=== PATIENT | female | born 1945 | race Caucasian/White ===

== ENCOUNTER 2025-01-26 11:31 | Outpatient (AMB) | payer MEDICARE, OTHER, SELFPAY ==
--- NOTE | 2025-01-26 11:37 | A.OFFVIS_ITS ---
Intake Visit Reasons: 6m sz Medication List - Last Reconciled 01/26/25 by Mercy Gallagher MD amitriptyline-chlordiazepoxide 12.5-5 mg 2 tabs PO BEDTIME PRN amlodipine 2.5 mg PO DAILY calcium carbonate (Calcium 600) 600 mg PO BID carbamazepine (Epitol) 200 mg PO TID cholecalciferol (vitamin D3) 50 mcg PO DAILY cholestyramine 4 grams PO BID cyclosporine 0.05% (Restasis) 1 drp ophthalmic (eye) Q12H phenobarbital 97.2 mg PO BEDTIME propranolol 80 mg PO BID sumatriptan succinate (Imitrex STATdose Refill) subcut valsartan 320 mg PO DAILY HPI Comments Details: 80 yr old woman with migraines and seizures. Doing well . [place] [employer] and was momentarily confused for 10 secs. The week before she had some dizziness for 10 minutes with vertigo. No nausea with out . Happened while sitting in her chair. Stressed as her son in [place] being seen at [facility]. No major migraines. Has a daily headache. Reduced Chlordiazepoxide -Amitrip to 1 hs on 05/29/23 to June 17 and went back to 2 as she was not feeling well. May have had a partial Sz on 05/21/24 as she was sick. No other definite partial Sz . Worries about everything and gets a lot of stress headache and neck tension almost daily. No migraines for a long while. Constantly worried. Some dizziness. Forgets things but functions well. Occasionally gets 5-10 secs of vertigo on lying down at night. 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 ?Hearing test shows bilateral high frequency hearing loss of 60db. [facility] Medical History (Updated 01/26/25 @ 11:44 by Mercy Gallagher MD) Gall stone Migraine Seizure HTN (hypertension) Review of Systems Const Details: General/Constitutional:? Change in appetitedenies.? Fatiguedenies.? Feverdenies.? Weight gaindenies.? Weight lossdenies. ???Sleep:? Difficulty getting to sleepdenies.? Difficulty maintaining sleepdenies?.? Daytime sleepinessdenies. ???Respiratory:? Shortness of breathdenies.? Chest paindenies. ???Cardiovascular:? Chest pain at restdenies.? Chest pain with exertiondenies.? Dizzinessdenies.? Fluid accumulation in the legsdenies.? Irregular heartbeatdenies.? Palpitations denies. ???Gastrointestinal:? Constipationdenies.? Diarrheadenies.? Difficulty swallowingdenies.? Heartburn denies.? Nauseadenies. ???Genitourinary:? Frequent urinationdenies.? Urgencydenies.? Incontinencedenies. ???Musculoskeletal:? Neck painadmits.? Back paindenies.? Joint stiffnessadmits.? Sciaticadenies. ???Neurologic:? Difficulty swallowingdenies.? Balance difficultydenies.? Coordinationnormal.? Difficulty speakingdenies.? Dizzinessdenies.? Faintingdenies.? Gait abnormality denies.? Headachethat is chronic.? Loss of strengthdenies.? Loss of use of extremitydenies.? Low back paindenies.? Memory lossdenies.? Seizuresadmits.? Ticsdenies.? Tingling/Numbnessdenies.? Transient loss of visiondenies.? Tremor denies. ???Psychiatric:? Anxietydenies.? Auditory/visual hallucinationsdenies.? Delusionsdenies.? Depressed mooddenies.? Stressorsdenies.? Suicidal thoughtsdenies. Physical Exam Neuro Other: Neurological: Abnormal neurological findings:??None.?Mental Status:??alert and oriented X 3,?Normal attention, orientation, memory and affect.?Cranial Nerves:??Pupils are equal, round and reactive to light. Fundoscopy shows normal disc bilaterally. External occular muscles are intact. Visual oropeza are full, no ptosis. Face is symmetrical, no facial weakness or droop. Facial sensations are normal. Tongue protrudes in midline. Palate elevates symmetrically. Shoulder shrugging is normal..?Motor Examination:??Normal muscle tone, bulk and strength,?No atrophy or fasciculations,?No drift of the extended upper extremities,?Deep tendon reflexes are 2+?,?Plantars are flexor?.?Straight Leg Raising:??90 degrees.?Sensory Exam:??Normal light touch, temperature, pinprick, vibration and joint-position sensations?,?Rhomberg sign is absent.?Coordination:??no ataxia,?no titubation,?ndtqlz-ch-ywxl, asof-lcbk-phbu test and rapid alternating movements were normal.?Gait Exam:??Within normal limits.?Cerebellar Signs:??Xkgxlc-jd-cyuo and dikd-gf-jivm is normal,?no dysdiadochokinesia?.?Extrapyramidal System:??No tremor, rigidity with normal facial expressions,?No bradykinesia, no bradyphrenia. Normal arm swing and posture. No propulsion or retropulsion.?Speech:??Normal,?no dysphasia or dysarthria..? General Examination: GENERAL APPEARANCE:??normal,?in no acute distress.?HEART:??S1, S2 normal,?no murmurs.?LUNGS:??clear anteriorly and posteriorly.?MUSCULOSKELETAL:??normal.?EXTREMITIES:??no edema.?PSYCH:??alert, oriented,?cognitive function intact,?cooperative with exam.? Mini Mental Status Exam: Level of Consciousness:??Alert.?Orientation:??Knows correct year, month, date, day and season,?Knows correct city, county and state. Knows correct location and floor.?Registration:??Able to register 3 objects.?Attention:??Serial 7's performed accurately.?Recall:??Able to recall 3 out of 3 objects.?Language:??Normal spontaneous speech, fluency, repetition,naming, comprehension, reading and writing.?Total Score:??30/30.? Assessment & Plan Assessment & Plan (1) Seizure: Code(s): R56.9 - Unspecified convulsions Category: Medical (2) Migraine: Code(s): G43.909 - Migraine, unspecified, not intractable, without status migrainosus Category: Medical Plan Check AED levels. F/u EEG . Will decide about driving after that Orders: Orders EEG Routine Today R56.9 - Unspecified convulsions Carbamazepine Tegretol Today R56.9 - Unspecified convulsions Phenobarbital Today R56.9 - Unspecified convulsions Medications: New amitriptyline-chlordiazepoxide 12.5-5 mg 2 tabs PO BEDTIME phenobarbital 97.2 mg PO BEDTIME 90 tabs 3RF 90 days carbamazepine (Epitol) 200 mg PO TID 270 tabs 3RF 90 days Coding Level of Care Code Est Pt Level 4 (58978) Diagnoses Seizure R56.9 Migraine G43.909
== END 2025-01-26 12:00 | disposition home or self-care (01) ==
LOC: HO.HSM 11:32
PROVIDERS: PCP Internal Medicine; Visit Provider Psychiatry & Neurology Neurology
DX: R56.9 Unspecified convulsions (principal); G43.909 Migraine, unspecified, not intractable, without status migrainosus
CPT/HCPCS: 99214

== ENCOUNTER 2025-01-26 11:31 | Outpatient (REF) | payer MEDICARE, OTHER, SELFPAY ==
[2025-01-26 14:38] LABS: Carbamazepine Tegretol 10.0 mcg/mL (5.0-12.0)
--- OUTSIDE RECORDS SUMMARY | 2025-01-26 17:06 | XMS_ITS | Data Portability ---
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 [email or web address] Not available 08/27/2024 15:03:01 Plan of Treatment Reminders Order Date Submit Date Provider Last Modified By Organization Details Last Modified Time Details Appointments Hearing Test 2025 10:00A M Hearing Test Not available Not available Not available Establish ed 15 2025 10:30A M GRACE TAYLOR MD Not available Not available Not available Lab None recorded. Referral None recorded. Procedures None recorded. Surgeries None recorded. Imaging None recorded. Medication Orders None recorded. Patient TargetsNo targets recorded. Patient InstructionsNo instructions recorded. Reason for Referral None Reported. Results Created Date Observation Date Name Description Value Unit Range Abnormal Flag Note LastModifiedBy Organization Detail LastModifiedTime 06/22/19 25 audio gram No observ ation record ed. BARCODE Not Available 2024 08:26:46 09/01/19 25 audio gram No observ ation record ed. BARCODE Not Available 2024 10:32:24 01/04/20 25 audio gram No observ ation record ed. BARCODE Not Available 2024 11:17:50 Result Notes None recorded. Problems Name Problem SNOMED Code Status Onset Date Resolution Date Notes Provider Name and Address Organization Details Recorded Time Sensorineural hearing loss of bilateral ears 420499291 Active 2024 GRACE TAYLOR MD 100 [facility],[address], [address] [place] [address] - [facility] [place] 11:27:19 Mixed conductive and sensorineural hearing loss, bilateral 371842691 Active 2024 GANESH GODWIN, AuD 100 [facility],[place] [address], [place], [address], [facility] - [facility] [place] 11:47:47 Dizziness and giddiness 588521348 Active 2024 GANESH GODWIN, AuD 100 [facility],[place] [address], [place], [address], [facility] [place] 11:47:51 Problem Notes None recorded. Procedures Surgical History Date Name Laterality Status Provider Name and Address Organization Details Recorded Time 01/04/20 25 Air & Speech Audio with Tymps - 00075, 05120 & 16646 completed TIKI VERA, [address], [address], [facility] 01/03/2025 09:37:05 08/28/19 25 Tympanometry - 93470 completed KOBI DUONG, [address], [address], [facility] 08/27/2024 15:03:24 06/19/19 25 Comp Audio with Tymps - 98751 & 57705 completed GANESH GODWIN, [facility] 100 [facility],[address], [address], [facility] 06/18/2024 11:47:24 Imaging Results None recorded. Procedure Notes None recorded. Medical Equipment None Reported. Allergies Allergen ID Allergen Name Allergen Category Reaction Reaction Severity Criticality Documentation Date Start Date Code Code System Note Provider Name and Address Organization Details Recorded Time 333662 Augmentin medicatio n Not available Not available Not available 06/18/2024 98617 2 RxNorm Norma amaya [facility] 11:07:29 Medications Name Sig Start Date Stop Date Status Note LastModified by Organization Details LastModified Time phenobarbit al 97.2 mg tablet TAKE 1 TABLET BY MOUTH EVERYDAY AT BEDTIME active Not Available Not Available No t Available amitriptyli ne-chlordia zepoxide 12.5 mg-5 mg tablet TAKE 2 TABLETS BY MOUTH EVERY NIGHT AT BEDTIME active Not Available Not Available No t Available propranolol ER 60 mg capsule,24 hr,extended release TAKE 1 CAPSULE BY MOUTH TWICE A DAY 01/03 completed Not Available Not Available Not Available amlodipine 2.5 mg tablet TAKE 1 TABLET BY MOUTH EVERY DAY active Not Available Not Available No t Available butalbital- acetaminoph en-caffeine 50 mg-325 mg-40 mg tablet PLEASE SEE ATTACHED FOR DETAILED DIRECTION S 01/03 completed Not Available Not Available Not Available ketorolac 0.5 % eye drops INSTILL 1 DROP INTO OPERATIVE EYE TWICE DAILY, START 2 DAYS BEFORE SURGERY 06/18 completed Not Available Not Available Not Available carbamazepi ne 200 mg tablet TAKE 1 TABLET BY MOUTH THREE TIMES A DAY ORALLY THREE TIMES A DAY 90 DAYS active Not Available Not Available No t Available amoxicillin 875 mg tablet TAKE 1 TABLET BY MOUTH TWICE A DAY FOR 7 DAYS 06/18 completed Not Available Not Available Not Available benzonatate 100 mg capsule TAKE 1 CAPSULE BY MOUTH 3 TIMES A DAY IF NEEDED FOR COUGH FOR UP TO 7 DAYS. DO NOT CRUSH OR CHEW. 06/18 completed Not Available Not Available Not Available cephalexin 500 mg capsule TAKE 1 CAPSULE BY MOUTH 2 TIMES A DAY FOR 5 DAYS. 12/31 completed Not Available Not Available Not Available propranolol ER 80 mg capsule,24 hr,extended release TAKE 1 CAPSULE BY MOUTH TWICE A DAY active Not Available Not Available No t Available valsartan 320 mg tablet TAKE 1 TABLET BY MOUTH EVERY DAY active Not Available Not Available No t Available fluticasone propionate 50 mcg/actuati on nasal spray,suspe nsion USE 2 SPRAYS IN EACH NOSTRIL DAILY active Not Available Not Available No t Available amoxicillin 875 mg-potassiu m clavulanate 125 mg tablet TAKE 1 TABLET BY MOUTH TWICE A DAY FOR 10 DAYS 06/18 completed Not Available Not Available Not Available Laxative (bisacodyl) 5 mg tablet,liza yed release TAKE 2 TABLETS BY MOUTH RIGHT BEFORE BEGINNING BOWEL PREP. SEE INSTRUCTI ONS PROVIDED BY THE OFFICE 01/03 completed Not Available Not Available Not Available Restasis 0.05 % eye drops in a dropperette INSTILL 1 DROP INTO BOTH EYES TWICE A DAY active Not Available Not Available No t Available cholestyram ine (with sugar) 4 gram powder for susp in a packet DRINK 1 PACKET BY MOUTH ONCE A DAY DISSOLVE 1 PACKET IN WATER AND DRINK BY MOUTH ONCE A DAY active Not Available Not Available No t Available nitrofurant oin monohydrate /macrocryst als 100 mg capsule TAKE 1 CAPSULE BY MOUTH TWICE A DAY FOR 5 DAYS 12/31 completed Not Available Not Available Not Available oseltamivir 30 mg capsule TAKE 1 CAPSULE BY MOUTH 2 TIMES A DAY FOR 8 DOSES. 06/18 completed Not Available Not Available Not Available GaviLyte-G 236 gram-22.74 gram-6.74 gram-5.86 gram oral solution PLEASE SEE ATTACHED FOR DETAILED DIRECTION S 01/03 completed Not Available Not Available Not Available Vitals Date Recorded Body height Body mass index (BMI) Body weight Provider Name and Address Organization Details Last Updated DateTime 06/18/2024 154.94 cm 27.6 kg/m2 11137.49 g Norma Du [facility] 06/18/2024 11:07:15 Date Recorded Body height Body mass index (BMI) Body weight Provider Name and Address Organization Details Last Updated DateTime 08/27/2024 154.94 cm 27.4 kg/m2 85132.89 g Norma Du [facility] 08/27/2024 16:07:10 Date Recorded Body height Body mass index (BMI) Body weight Provider Name and Address Organization Details Last Updated DateTime 01/03/2025 154.94 cm 26.5 kg/m2 59774.93 g Norma Du [facility] 01/03/2025 09:53:28 Social History None recorded. Functional Status None recorded. Mental Status None recorded. Family History Nothing Reported. Medical History Condition Response Migraines Y Arthritis Y Anxiety Y Hypertension Y Depression Y Gynecological HistoryNo gynecological history recorded. Obstetrics History GPAL:G 0 P 0 0 0 0 Past Encounters Encounter ID Performer Location Encounter Start Date Encounter Closed Date Diagnosis/Indication Diagnosis SNOMED-CT Code Diagnosis ICD10 Code Diagnosis IMO Codes Diagnosis Note [id number] GRACE TAYLOR MD [facility] [address] [address] 06/18/2024 10:25:05 06/18/2024 12:45:17 Mixed conductive and sensorineural hearing loss, bilateral 408385069 H90.6 78 yo F with persistent effusion following ear and sinus infection beginning 1 month ago, with small AB gap. I reassured her there was no evidence of coalescent mastoiditi s on previous imaging, and exam today does not show any purulence. I counseled her that most effusions will resolve with time, generally within 3 months. I reassured her there was no coalescent mastoiditi s on imaging, and no evidence of purulence on exam today. She can use nasal steroids. We will plan on reassessme nt in 2 months to ensure resolution , sooner with worsening symptoms. Audiologic al evaluation results:Ri ght ear:Mild sloping to moderately severe mixed hearing loss with excellent word recognitio n.Left ear:Mild sloping to moderately severe mixed hearing loss with excellent word recognitio n. Tympanomet ry:Right Ear:Type BLeft Ear:Type B Dizziness and giddiness 575259289 R42 [id number] Elvin NICOLE [facility] [place] [address] [place] [address] 06/18/2024 11:47:15 06/18/2024 12:45:26 Mixed conductive and sensorineural hearing loss, bilateral 571428793 H90.6 Audiologic al evaluation results: Right ear: Mild sloping to moderately severe mixed hearing loss with excellent word recognitio n. Left ear: Mild sloping to moderately severe mixed hearing loss with excellent word recognitio n. Tympanomet ry: Right Ear:Type B Left Ear:Type B Dizziness and giddiness 138773354 R42 [id number] GRACE TAYLOR MD [facility] [address] [place] [address] 08/27/2024 14:45:03 08/27/2024 15:58:31 Mixed conductive and sensorineural hearing loss, bilateral 260773914 H90.6 79-year-ol d female presents today for follow-up. Some of the sound distortion symptoms she has been having are improved. Though she had abnormal tympanomet ry today, I do not see any effusion, and I do see TM mobility on the left with pneumatic otoscopy. Her exam is improved compared to her last visit, so I have recommende d continued observatio n and lieu of tube placement especially given that air-bone gap at her last visit was relatively small. [id number] ELVIN ROSADO [facility] [address] [place] [address] 08/27/2024 15:02:53 09/02/2024 08:23:34 Mixed conductive and sensorineural hearing loss, bilateral 126900805 H90.6 Tympanomet ry: Right: Type B Left: B [id number] GRACE TAYLOR MD [facility] [address] [place] [address] 01/03/2025 09:03:16 01/03/2025 11:30:05 Sensorineural hearing loss of bilateral ears 121207526 H90.3 Middle ears are well aerated. Previously noted conductive component has resolved. There is still a hearing loss involving the speech frequencie s. I did discuss that hearing aids can help with the tinnitus. She does feel that the tinnitus is a little bit better. She is not interested in any amplificat ion at this time. I recommend repeat audio in about a year. Audiologic al evaluation results: Right ear:Border line normal sloping to moderately severe sensorineu ral hearing loss with excellent word recognitio n.Left ear:Normal sloping to a moderate sensorineu ral hearing loss with excellent word recognitio n. Tympanomet ry:Right Ear:[place] [id number] ELVIN ROMERO [facility] [address] [place] [address] 01/03/2025 09:02:56 01/03/2025 10:10:32 Sensorineural hearing loss of bilateral ears 409522350 H90.3 Audiologic al evaluation results: Right ear: Borderline normal sloping to moderately severe sensorineu ral hearing loss with excellent word recognitio n. Left ear: Normal sloping to a moderate sensorineu ral hearing loss with excellent word recognitio n. Tympanomet ry: Right Ear:Type As Left Ear:Type As Health Concerns Section Related Observation LastModified by Organization Detai ls LastModified Time None Recorded Concern Status LastModified by Organization Details LastModified Time None Recorded Advance Directives Directive None Recorded Payers Insurance Date Sequence Insurance Name Policy Number Policy Martin Covered Member ID Martin Member ID Guarantor Name 01/03/2025 1 MEDICARE [place]: [facility] [employer] Mirtha Mtz Dexheimer [id number] Mirtha Dexheimer 01/03/2025 2 [facility] INDEMNITY PLAN (INDEMNITY) [id number] Vivek Martin Dexheimer [id number] Mirtha Gina Notes Date Note Type Note Provider Name and Address Organization Details Recorded Time 06/18/2024 text/html ROS as noted in the HPI 78 yo F with hearing lossfeels like talking through tube for a monthhearing now better but tinnitus (tambourine and drumming) now left only previously both, have not heard the tambourinesdiagnosed with inner ear and sinus infection and had the flu, Februarygiven script for fioricet, tamiflu, augmentin (gave diarrhea) - stopped early but took at least [address] reviewed showing:Bilateral mastoid and middle ear effusions. Recommend otoscopic exam.Extensive opacification in the paranasal sinuses with air-fluid levelspronounced in the maxillary sinuses suggesting acute sinusitis.The orbits are within normal limits.No skull fracture. I reviewed the images no bony destruction. GRACE TAYLOR MD [address], [address], [facility] 06/21/2024 12:49:19 06/18/2024 text/html Audiological Evaluation HPIReported by PatientHearing LossFor hearing loss perceived, patient reportshearing loss in both ears (no differences noted between ears).DizzinessFor balance symptoms reported, patient reportsdizziness. Elvin NICOLE [address] [place] [address],[address], [address], [facility] 06/18/2024 11:48:29 08/27/2024 text/html Audiological Evaluation HPIReported by Patient Provider requested tympanometry today. ELVIN ROSADO 100 [facility], [address], [place] - [facility] 08/27/2024 15:08:58 08/27/2024 text/html ROS as noted in the HPI drums are bettervoice seems far away sometimes, but better today when talking PV: 78 yo F with hearing lossfeels like talking through tube for a monthhearing now better but tinnitus (tambourine and drumming) now left only previously both, have not heard the tambourinesdiagnosed with inner ear and sinus infection and had the flu, ven script for fioricet, tamiflu, augmentin (gave diarrhea) - stopped early but took at least [address] reviewed showing:Bilateral mastoid and middle ear effusions. Recommend otoscopic exam.Extensive opacification in the paranasal sinuses with air-fluid levelspronounced in the maxillary sinuses suggesting acute sinusitis.The orbits are within normal limits.No skull fracture. I reviewed the images no bony destruction. GRACE TAYLOR MD [address] [place] [address],[address], [address], [facility] - [facility] 08/28/2024 08:12:16 01/03/2025 text/html Sounds are still there, quieted down. Not as much hearing sounds from the medley. Also hears sounds like tambourine and sweeping sounds. Has a history of migraines. GRACE TAYLOR MD [address] [place] [address],[address], [address], [place] - [facility] 01/03/2025 11:28:19 OBGyn Episode No OBEpisode recorded.
== END 2025-01-26 11:32 | disposition home or self-care (01) ==
LOC: HO.LAB 11:31
PROVIDERS: PCP Internal Medicine; Visit Provider Psychiatry & Neurology Neurology
DX: G40.209 Localization-related (focal) (partial) symptomatic epilepsy and epileptic syndromes with complex partial seizures, not intractable, without status epilepticus (principal); G43.009 Migraine without aura, not intractable, without status migrainosus
CPT/HCPCS: 36415; 80156; 80184; 99212

== ENCOUNTER 2025-03-07 10:24 | Outpatient (REF) | payer MEDICARE, OTHER, SELFPAY ==
--- NOTE | 2025-03-07 11:52 | EEG_ITS ---
History: Gall stone, Migraine, Seizure, HTN (hypertension) - Patient reports she may have had a partial Sz on 05/21/24 as she was sick. No other definite partial Sz . Worries about everything and gets a lot of stress headache and neck tension almost daily. No migraines for a long while. Constantly worried. Some dizziness. Forgets things but functions well. Occasionally gets 5-10 secs of vertigo on lying down at night. 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 Medication: amitriptyline-chlordiazepoxide, amlodipine, calcium carbonate, carbamazepine (Epitol), cholecalciferol (vitamin D3), cholestyramine, cyclosporine, phenobarbital, propranolol, sumatriptan succinate, valsartan Technical Description Photic Stimulation: completed Hyperventilation: omitted Behavioral State: pleasant State of Consciousness: awake and drowsy Skull Defect: none Sedation: none Handedness: right Duration: 31 min 58 sec Procedures Analyst Comments: patient was very nervous Last Meal: 03/07/25 @ 8 AM Time / date of last symptom: 05/21/24 Description: The waking background activity consists of a moderate to high voltage diffuse poorly organized 7-8 hertz slow alpha intermixed with moderate voltage beta frequencies. Occasional bitemporal theta at 6 hertz with somewhat sharp configuration are seen with a slight left-sided predominance. Photic stimulation is without activation. Hyperventilation was omitted. No sleep stages are identified. Impression: This EEG is considered mildly abnormal due to mild diffuse background slowing and some bitemporal theta slowing with sharp configuration. This correlates with a diffuse cerebral dysfunction with some elements of cerebral irritability in the temporal regions. These findings are not developed well enough to be diagnostic for a seizure disorder. No definite seizure activity is identified. Clinical correlation is suggested MTDD
--- OUTSIDE RECORDS SUMMARY | 2025-03-07 13:06 | XMS_ITS | Clinical Summary ---
Author Organization [facility] [address] [facility] Address [address] [place] [address] Phone Care Team Providers Care Construction Teacher Name Role Phone Tameka Zarate MD Primary Care Provider [phone] Allergies Active Allergy Reactions Criticality Noted Date Comments Amoxicillin-Pot Clavulanate Diarrhea 08/04/19 25 Medications carBAMazepine (TEGretol) 200 mg tablet Take 1 tablet (200 mg total) by mouth. 5 Active PHENobarbitaL 97.2 mg tablet Take 1 tablet (97.2 mg total) by mouth at bedtime. 4 Active amLODIPine (NORVASC) 2.5 mg tablet Take 1 tablet (2.5 mg total) by mouth 1 (one) time each day. Active chlordiazePOXID E-amitriptyline (LIMBITROL) 12.5-5 mg per tablet TAKE 2 TABLETS BY MOUTH DAILY AT BEDTIME ORALLY 90 DAYS 4 Active propranolol LA (INDERAL LA) 60 mg 24 hr capsule Take 1 capsule (60 mg total) by mouth 2 (two) times a day. 4 Active valsartan (DIOVAN) 320 mg tablet Take 1 tablet (320 mg total) by mouth 1 (one) time each day. Active Restasis 0.05 % ophthalmic emulsion Administer 1 drop into both eyes 2 (two) times a day. 4 Active butalbital-acet aminophen-caffe ine (FIORICET, ESGIC) 50-325-40 mg per tablet Take 1 tablet by mouth every 6 (six) hours if needed for headaches for up to 12 doses. Use no more than 5/day, 10/week, 30/month. 12 each 5 Active Additional Information Patient not taking.Reported on 09/29/2024 cholestyramine (QUESTRAN) 4 gram packetIndicatio ns:Diarrhea DRINK 1 PACKET BY MOUTH ONCE A DAY DISSOLVE 1 PACKET IN WATER AND DRINK BY MOUTH ONCE A DAY 90 packet 1 5 Active polyethylene glycol (Golytely) 236-22.74-6.74 -5.86 gram solution Take 4L by mouth once for one dose. May substitue any PEG. Starting at 6PM the night before your procedure drink 1 8oz glasses at your own pace until you complete half of the gallon. Finish 2nd half of the gallon 5 hours before your procedure. 4000 mL 5 Active propranoloL (INDERAL) 80 mg tablet Take 1 tablet (80 mg total) by mouth 3 (three) times a day. Active fluticasone propionate (FLONASE) 50 mcg/actuation nasal spray Administer 2 sprays into each nostril 1 (one) time each day. Active multivit-min/ir on/FA/vit K/lut (CENTRUM SILVER WOMEN ORAL) Take by mouth. Act pamela Active Problems Problem Noted Date Diagnosed Date HTN (hypertension) 10/06/2024 Seizures ([facility] V24, [facility] V28) 10/06/2024 Gastroesophageal reflux disease 10/06/2024 Influenza A 06/17/2024 Acute sinusitis 06/17/2024 Acute bilateral mastoiditis 06/06/2024 Contusion of right knee 10/19/2020 Surgical History Surgery Date Site/Laterality Comments ANKLE FRACTURE SURGERY Right CATARACT EXTRACTION Bilateral COLONOSCOPY Medical History Medical History Date Comments Hypertension Seizures ([facility] V24, [facility] V28) IBS (irritable bowel syndrome) Meningitis at 10 weeks old GERD (gastroesophageal reflux disease) Family History Medical History Relation Name Comments Hypertension Father Colon cancer Father's Sister Relation Name Status Comments Father Father's Sister Social History Tobacco Use Types Packs/Day Years Used Date Smoking Tobacco: Never Smokeless Tobacco: Never Tobacco Cessation:Counseling Given: Not Answered Alcohol Use Standard Drinks/Week Comments Never 0 (1 standard drink = 0.6 oz pur e alcohol) Interpersonal Safety Answer Date Record ed Physical Abuse Unrecognized value 10/06/2024 Verbal Abuse Unrecognized value 10/06/2024 Comments No Sex and Gender Information Value Date Recorded Sex Assigned at Not on file Legal Sex Female 3:30 PM EST Gender Identity Female 09/28/2024 2:08 PM EDT Sexual Orientation Not on file Obstetrics History Last Filed Vital Signs Vital Sign Reading Time Taken Comments Blood Pressure 128/64 10/06/2024 1:03 PM EDT Pulse 64 10/06/2024 1:03 PM EDT Temperature 36.8 C (98.3 F) 10/06/2024 12:47 PM EDT Respiratory Rate 16 10/06/2024 1:03 PM EDT Oxygen Saturation 98% 10/06/2024 1:03 PM EDT Inhaled Oxygen Concentration - - Weight 63.5 kg (140 lb) 10/06/2024 11:54 AM EDT Height 154.9 cm (5' 1 ) 10/06/2024 11:54 AM EDT Body Mass Index 26.45 10/06/2024 11:54 AM EDT Plan of Treatment Upcoming Encounters Date Type Department Care Team (Late st Contact Info) Description 03/24/2025 9:10 AM EST Office Visit Gastroenterology - [address] [facility] [place] [address] [place] [phone] Chitra Ernst PA [address] [address] Health Maintenance Due Date Last Done Comments RSV Immunization Adult Patients (1 - 1-dose 75+ series) 2021 Cholesterol Screening (Lipid Panel) 03/06/2022 Hepatitis C Screening 03/06/2022 Medicare Annual Wellness Visit 03/06/2022 Osteoporosis Screening (Bone Density Screening) 03/06/2022 Social Influencers of Health Screening 03/06/2022 Depression Screening 04/07/2024 COVID-19 Vaccine ( season) 2024 03/14/2021, 07/07/2020, 06/16/2020 Zoster Vaccines (2 of 2) 01/24/2025 11/29/2024 Hypertension/CHF/CAD Annual BMP Blood Test 06/15/2025 06/15/2024, 06/07/2024, 06/06/2024 Falls Risk Assessment 10/06/2025 10/06/2024 DTaP,Tdap,and Td Vaccines (5 - Td or Tdap) 09/27/2032 09/27/2022, 04/20/2012, 10/13/2007, Additional history exists Hepatitis A Vaccines Aged Out 01/09/2015, 07/01/19 15 No longer eligible based on patient's age to complete this topic Pneumococcal Vaccine: 50+ Years Completed 02/24/2020, 12/26/2014, 11/08/2011 Colorectal Cancer Screening: Colonoscopy Discontinued 10/06/2024, 02/28/2014 Influenza Vaccine Completed 11/29/2024, , 02/04/2021, Additional history exists HIB Vaccines Aged Out No longer eligi ble based on patient's age to complete this topic HPV Vaccines Aged Out No longer eligi ble based on patient's age to complete this topic Hepatitis B Vaccines Aged Out No long er eligible based on patient's age to complete this topic IPV Vaccines Aged Out No longer eligi ble based on patient's age to complete this topic MMR Vaccines Aged Out No longer eligi ble based on patient's age to complete this topic Meningococcal ACWY Vaccine Aged Out N o longer eligible based on patient's age to complete this topic Meningococcal B Vaccine Aged Out No l onger eligible based on patient's age to complete this topic RSV Immunization Patients Under 20 months Aged Out No longer eligible based on patient's age to complete this topic Varicella Vaccines Aged Out No longer eligible based on patient's age to complete this topic Procedures Procedure Name Priority Date/Time Associated Diagnosis Comments COLONOSCOPY Routine 10/06/2024 12:41 PM EDT History of colon polyps COMPREHENSIVE METABOLIC PANEL STAT 06/15/2024 2:06 PM EDT from Last 3 Months or Most Recently Relevant to Health Maintenance Results * COLONOSCOPY Anesthesia - MAC; [facility] ENDOSCOPY (10/06/2024 12:41 PM EDT) Anatomical Region Laterality Modality Endoscopy 10/06/2024 12:1 9 PM EDT Impressions 10/06/2024 12:42 PM EDT - The examined portion of the ileum was normal. - Diverticulosis in the sigmoid colon. - Internal hemorrhoids. - The examination was otherwise normal. - No specimens collected. Recommendation: - Repeat colonoscopy is not recommended for surveillance. Narrative 10/06/2024 12:42 PM EDT [facility] GI Patient Name: Mirtha Fuentes Procedure Date: 10/06/2024 12:19 PM Date of : 1945 Age: 79 Gender: Female Note Status: Finalized Attending MD: Erin Mederos MD, Procedure Date No Time: 10/06/2024 Procedure: Colonoscopy Indications: High risk colon cancer surveillance: Personal history of non-advanced adenoma Providers: Erin Mederos MD Referring MD: Erin Mederos MD, Rhoda Zarate MD Medicines: Propofol per Anesthesia Complications: No immediate complications. Estimated Blood Loss: Estimated blood loss: none. Procedure: Pre-Anesthesia Assessment: - ASA Grade Assessment: II - A patient with mild systemic disease. After I obtained informed consent, the scope was passed under direct vision. Throughout the procedure, the patient's blood pressure, pulse, and oxygen saturations were monitored continuously.The Colonoscope was introduced through the anus and advanced to the cecum, identified by appendiceal orifice and ileocecal valve. The colonoscopy was performed without difficulty. The patient tolerated the procedure well. The quality of the bowel preparation was good. Findings: The perianal and digital rectal examinations were normal. The terminal ileum appeared normal. A few small-mouthed diverticula were found in the sigmoid colon. Internal hemorrhoids were found during retroflexion. The hemorrhoids were Grade I (internal hemorrhoids that do not prolapse). The exam was otherwise without abnormality. Procedure Code(s): --- Professional --- G0105, Colorectal cancer screening; colonoscopy on individual at high risk Diagnosis Code(s): --- Professional --- Z86.010, Personal history of colonic polyps CPT copyright 2020 [employer]. All rights reserved. The codes documented in this report are preliminary and upon floor surfacer review may be revised to meet current compliance requirements. Erin Mederos MD 10/06/2024 12:42:22 PM This report has been signed electronically.Erin Mederos MD Number of Addenda: 0 Note Initiated On: 10/06/2024 12:19 PM Scope In: Scope Out: Endoscopy Department at [facility] - [address] [place] [phone] Procedure Note Erin Mederos MD - 10/06/2024 [facility] GI Patient Name: Mirtha Fuentes Procedure Date: 10/06/2024 12:19 PM Date of : 1945 Age: 79 Gender: Female Note Status: Finalized Attending MD: Erin Mederos MD, Procedure Date No Time: 10/06/2024 Procedure: Colonoscopy Indications: High risk colon cancer surveillance: Personalhistory of non-advanced adenoma Providers: Erin Mederos MD Referring MD: Erin Mederos MD, Rhoda Zarate MD Medicines: Propofol per Anesthesia Complications: No immediate complications. Estimated Blood Loss: Estimated blood loss: none. Procedure: Pre-Anesthesia Assessment: - ASA Grade Assessment: II - A patient with mild systemic disease. After I obtained informed consent, the scope was passed under direct vision. Throughout theprocedure, the patient's blood pressure, pulse, and oxygen saturations were monitored continuously.The Colonoscope was introduced through the anus and advanced to the cecum, identified by appendiceal orifice and ileocecal valve. The colonoscopy was performed without difficulty. The patient tolerated the procedure well. The quality of the bowel preparation was good. Findings: The perianal and digital rectal examinations were normal. The terminal ileum appeared normal. A few small-mouthed diverticula were found in the sigmoid colon. Internal hemorrhoids were found duringretroflexion. The hemorrhoids were Grade I (internal hemorrhoids that do not prolapse). The exam was otherwise without abnormality. Procedure Code(s): --- Professional --- G0105, Colorectal cancer screening; colonoscopy on individual at high risk Diagnosis Code(s): --- Professional --- Z86.010, Personal history of colonic polyps CPT copyright 2020 [employer]. All rights reserved. The codes documented in this report are preliminary and upon floor surfacer reviewmay be revised to meet current compliance requirements. Erin Mederos MD 10/06/2024 12:42:22 PM This report has been signed electronically.Erin Mederos MD Number of Addenda: 0 Note Initiated On: 10/06/2024 12:19 PM Scope In: Scope Out: Endoscopy Department at [facility] - [address] [place] [phone] IMPRESSION: - The examined portion of the ileum was normal. - Diverticulosis in the sigmoid colon. - Internal hemorrhoids. - The examination was otherwise normal. - No specimens collected. Recommendation: - Repeat colonoscopy is not recommended for surveillance. us Erin Mederos MD GI~PROCEDURE ORDERABLES Final Result * (ABNORMAL) Comprehensive metabolic panel (06/15/2024 2:06 PM EDT) Sodium 141 133 - 145 mmol/L LAB CHEMISTRY METHOD 06/15/2024 3:02 PM [facility] Potassium 3.6 3.5 - 5.5 mmol/L LAB CHEMISTRY METHOD 06/15/2024 3:02 PM [facility] Chloride 107 96 - 110 mmol/L LAB CHEMISTRY METHOD 06/15/2024 3:02 PM [facility] CO2 25 21 - 32 mmol/L LAB CHEMISTRY METHOD 06/15/2024 3:02 PM [facility] Anion Gap 9 3 - 11 LAB CHEMISTRY METHOD 06/15/2024 3:02 PM [facility] Glucose 91 70 - 100 mg/dL LAB CHEMISTRY METHOD 06/15/2024 3:02 PM [facility] BUN 12 5 - 25 mg/dL LAB CHEMISTRY METHOD 06/15/2024 3:02 PM [facility] Creatinine 0.66 0.50 - 1.10 mg/dL LAB CHEMISTRY METHOD 06/15/2024 3:02 PM [facility] eGFR 90 >=60 mL/min/1. 73m2 LAB CHEMISTRY METHOD 06/15/2024 3:02 PM [facility] Comment:Calculation based on the Chronic Kidney Disease Epidemiology Collaboration (CKD-EPI) equation refit without adjustment for race. BUN/Creatinine Ratio 18.2 LAB CHEMISTRY METHOD 06/15/2024 3:02 PM EDT [facility] Calcium 8.6 8.5 - 10.5 mg/dL LAB CHEMISTRY METHOD 06/15/2024 3:02 PM [facility] AST (SGOT) 88(H) 10 - 42 unit/L LAB CHEMISTRY [facility] ALT (SGPT) 161(H) 10 - 60 unit/L LAB CHEMISTRY METHOD 06/15[facility]24 [facility] Alkaline Phosphatase 143(H) 42 - 121 unit/L LAB CHEMISTRY METHOD 06/15/2024 [facility] Total Protein 7.3 6.0 - 8.0 g/dL LAB CHEMISTRY METHOD 06/15/2024 [facility] Albumin 3.5 3.2 - 5.0 g/dL LAB CHEMISTRY METHOD 06/15/2024 3:02 PM [facility] Total Bilirubin 0.4 0.0 - 1.4 mg/dL LAB CHEMISTRY METHOD 06/15/2024 3:02 PM [facility] Blood Venous blood specimen / Unknown Venipuncture / Unknown 06/15/2024 2:06 PM EDT 06/15/2024 2:20 PM EDT us Nestor Brandon DO LAB BLOOD ORDERABLES Final Result [facility] [address] [place] [address], from Last 3 Months or Most Recently Relevant to Health Maintenance Insurance [facility]ICARE [facility] Advance Directives * Full Code - Default (Latest Code Status on File) Date Activated Date Inactivated Comments 06/06/2024 9:36 PM 06/07/2024 6:38 PM This is order is used when code status has not been discussed with the patient, or code status is otherwise unknown/unconfirmed To update the patient's code status, place a code status order. Do not modify or discontinue any currently active code status orders. Care Teams Construction Teacher Relationship Specialty Start Date End Date Tameka Zarate MD [address] [place] [id number] PCP - General Internal Medicine 05/20/24
== END 2025-03-07 10:25 | disposition home or self-care (01) ==
LOC: HO.NEURO 10:24
PROVIDERS: PCP Internal Medicine; Visit Provider Psychiatry & Neurology Neurology
DX: R56.9 Unspecified convulsions (principal)
CPT/HCPCS: 95816

== ENCOUNTER → 2025-03-07 11:52 | Outpatient (BNV) | payer MEDICARE, OTHER, SELFPAY | PROVIDERS: PCP Internal Medicine; Visit Provider Psychiatry & Neurology Neurology | DX: G93.89 Other specified disorders of brain (principal) | CPT/HCPCS: 95816 ==